=== PATIENT | female | born 1960 | race Caucasian/White ===

== ENCOUNTER 2016-06-02 08:48 | Day surgery (SDC) | payer MEDICARE ==
--- NOTE | ~2016-06-02 | OP ---
Record Of Operation [facility] [address] [place]. [address] NAME: JAS STRICKLAND SEPTEMBER : 56 STATUS : DIS IN PAT#: [id number] AGE: 56 ADM/REG DATE : 06/02/16 MR#: [id number] REPORT SERV DATE: 06/02/16 DICTATED BY: KAYDEN ZAPATA DATE: 06/02/16 REPORT STATUS : Draft TRANSCRIBED BY: MODL DATE: 06/02/16 DATE OF PROCEDURE: 06/02/2016 PREOPERATIVE DIAGNOSIS: Multiple fractured carious and abscessed teeth. POSTOPERATIVE DIAGNOSIS: Multiple fractured carious and abscessed teeth. SECONDARY DIAGNOSES: Chronic obstructive pulmonary disease, coronary artery disease, hypertension, multiple pulmonary emboli, and deep venous thrombosis. OPERATION: Multiple extraction alveoloplasty. DESCRIPTION OF OPERATION: Following induction of general endotracheal anesthesia, face and mouth were prepped and draped in the usual manner. Maxillary and mandibular blocks were utilized by giving 0.5% Marcaine with 1: 200,000 epinephrine solution total of 6 mL. Mucoperiosteal flap was then reflected from the mandibular alveolus and the remaining fractured chronically abscessed teeth removed by elevator and rongeur. The alveoli were debrided with a curette, and the mucoperiosteum reapproximated with 3-0 continuous plain gut suture. Attention was turned to the maxillary arch where the same procedure was carried on the maxilla as described for the left. Following this, the throat pack was removed. The pharynx was suctioned clear. The patient was allowed to awaken on inflated endotracheal tube having tolerated procedure well. BLOOD LOSS: Estimated 50 mL. IV FLUIDS: 600 mL lactated Ringer's. WT/MODL Kayden Zapata D.D.S. / [id number] CC: Yasmani Lei M.D.
[~2016-06-02 08:48] MED LIST: ADVAIR115P INH; ADVAIR230P INH; ASA5GR PO; ASAB PO; BEN25 PO; BENADRYL 50 MG50 MG PO; BIST PO; BYSTOLIC2.5 MG PO; BYSTOLIC5 MG PO; CELEXA40 MG PO; CENTRUM TAB1 TAB PO; CLARIT10 PO; CLEOCIN300 MG PO; COMBIVENT INH; DELTADOSE; DIL4TAB PO; DSS PO; DURA25 TOP; DURA50 TOP; DURA75 TOP; FISH-EPA1000 MG PO; FLONASE NAS; FLORASTOR250 MG PO; FLORINEF0.1 MG PO; IMDUR30 PO; ISOSORB DIN30 MG PO; K500 PO; KLONO5 PO; LEVAQUIN750 MG PO; LIPITOR10 PO; LIPITOR20 PO; LOP25 PO; LORTAB10 PO; METHOC750B PO; MUCINEX PO; MUCINEX1200 MG PO; MUCINEX600 MG PO; MULTIPLE VIT PO; MULTIVIT/MIN PO; MULTIVITAMI1 PO; MUSINEX PO; NIACOR500 MG PO; OS500+D PO; PEPCID40 MG OR; PLAVIX PO; PR25 PO; PRILO PO; PROAIR HFA INH; PROVHFA INH; PROZAC PO; PROZAC40 MG PO; REMERON30 MG PO; RISP1 PO; RISP2 PO; SLO-NIACIN500 MG PO; SPIRIVA INH; STERAPDS12; STOOL SOFTEN100 MG PO; SUPER B COMP PO; TYLENOL PM PO; WELLBUTRIN200 MG PO; WELLSR150 PO; XPECT400 MG PO; ZOFRAN8 PO
[2016-06-02 09:27] LABS: HEMATOCRIT 42.6 % (36.0-48.0); HEMOGLOBIN 12.3 g/dL (12.0-16.0)
[2016-06-02 09:32] LABS: INTERNATIONAL NORMAL RATI 0.9 UNITS (-); PARTIAL THROMBO TIME 26.3 SEC (22.5-37.2); PROTIME (NOT ORD) 12.3 SEC (12.0-14.5)
== END 2016-06-02 16:32 | disposition home or self-care (01) ==
LOC: SDC 08:48
PROVIDERS: Oral & Maxillofacial Surgery
PROC: 0NQV0ZZ Repair Left Mandible, Open Approach (ICD-10-PCS; 2016-06-02)
PROC: 0NQS0ZZ (ICD-10-PCS; principal; 2016-06-02 10:00)
DX: S02.5XXA Fracture of tooth (traumatic), initial encounter for closed fracture (principal); K04.7 Periapical abscess without sinus; J44.9 Chronic obstructive pulmonary disease, unspecified; I25.10 Atherosclerotic heart disease of native coronary artery without angina pectoris; F17.210 Nicotine dependence, cigarettes, uncomplicated; K58.9 Irritable bowel syndrome, unspecified; K21.9 Gastro-esophageal reflux disease without esophagitis; E78.00 Pure hypercholesterolemia, unspecified; M19.90 Unspecified osteoarthritis, unspecified site; F41.9 Anxiety disorder, unspecified; F32.9 Major depressive disorder, single episode, unspecified; I10 Essential (primary) hypertension; Z86.718 Personal history of other venous thrombosis and embolism; Z86.711 Personal history of pulmonary embolism; Z90.49 Acquired absence of other specified parts of digestive tract; Z88.0 Allergy status to penicillin; Z79.899 Other long term (current) drug therapy; Z98.51 Tubal ligation status; Z98.890 Other specified postprocedural states
CPT/HCPCS: 85014; 85018; 85610; 85730; 93005; A9270-GY; J2250; J2370; J2405; J2710; J3010

== ENCOUNTER 2016-06-17 18:32 | Emergency (ER) | payer MEDICARE ==
[2016-06-17 23:37] LABS: BASOPHILS 0.4 %; BASOPHILS ABSOLUTE 0.03 10/3/uL (0.0-0.16); EOSINOPHILS 3.2 %; EOSINOPHILS ABSOLUTE 0.26 10/3/uL (0.0-0.53); HEMOGLOBIN 10.9 g/dL (12.0-16.0); IMMATURE GRANULOCYTES 0.1 %; IMMATURE GRANULOCYTES ABSOLUTE 0.01 10/3/uL (0.0-0.11); LYMPHOCYTES 14.6 %; LYMPHOCYTES ABSOLUTE 1.18 10/3/uL (0.67-4.30); MEAN CORPUS HGB CONC 29.3 g/dL (32.0-36.0); MEAN CORPUSCULAR HEMOGLOB 27.3 pg (26.0-34.0); MEAN CORPUSCULAR VOLUME 93.2 fL (80-100); MONOCYTES 11.4 %; MONOCYTES ABSOLUTE 0.92 10/3/uL (0.21-1.20); NEUTROPHILS 70.3 %; NEUTROPHILS ABSOLUTE 5.69 10/3/uL (2.02-8.40); PLATELET COUNT 191 10/3/uL (150-400); WHITE BLOOD CELLS 8.1 10/3/uL (4.5-10.5)
[2016-06-17 23:38] LABS: ER CBC TAT 0 Hrs 12 MinsNP; HEMATOCRIT 37.2 % (36.0-48.0); MANUAL DIFF NO %; RED CELL COUNT 3.99 10/6/uL (4.0-5.6)
[2016-06-17 23:44] LABS: BUN (BLOOD UREA NITROGEN) 13 MG/DL (6-23); CALCIUM, SERUM 8.9 MG/DL (8.5-10.4); CHLORIDE, SERUM 97 MMOL/L (96-112); CREATININE 0.71 MG/DL (0.55-1.02); GFR AFRICAN AMERICAN 109 ML/MIN (>=60); GFR NON AFRICAN AMERICAN 94 ML/MIN (>=60); GLUCOSE, SERUM 108 MG/DL (60-99); PARTIAL THROMBO TIME 32.2 SEC (22.5-37.2); POTASSIUM, SERUM 4.1 MMOL/L (3.5-5.3); PROTIME (NOT ORD) 13.1 SEC (12.0-14.5); SODIUM, SERUM 141 MMOL/L (135-148)
[2016-06-17 23:47] LABS: CO2 (CARBON DIOXIDE) 38 MMOL/L (24-34)
== END 2016-06-18 00:55 | disposition home or self-care (01) ==
LOC: ER 18:32
PROVIDERS: Nurse Practitioner Acute Care
DX: S22.41XA Multiple fractures of ribs, right side, initial encounter for closed fracture (principal); J44.9 Chronic obstructive pulmonary disease, unspecified; F31.9 Bipolar disorder, unspecified; D64.9 Anemia, unspecified; F17.200 Nicotine dependence, unspecified, uncomplicated; Z95.5 Presence of coronary angioplasty implant and graft; Z85.118 Personal history of other malignant neoplasm of bronchus and lung; Z88.0 Allergy status to penicillin; Z79.52 Long term (current) use of systemic steroids; Z79.899 Other long term (current) drug therapy; W19.XXXA Unspecified fall, initial encounter
CPT/HCPCS: 71250; 80048; 85025; 85610; 85730; 94640; 99284